=== PATIENT | female | born 1945 | race Caucasian/White ===

== ENCOUNTER 2024-09-01 06:23 | Day surgery (SDC) | payer MEDICARE, OTHER, SELFPAY ==
[2024-09-01 10:47] LABS: Glucose - Point of Care 96 mg/dl (70-99)
== END 2024-09-01 12:00 ==
LOC: GI 06:23
PROVIDERS: ATTENDING PHYSICIAN Internal Medicine Gastroenterology; FAMILY PHYSICIAN Nurse Practitioner Gerontology
DX: Z12.11 Encounter for screening for malignant neoplasm of colon (principal); K64.8 Other hemorrhoids; K57.30 Diverticulosis of large intestine without perforation or abscess without bleeding; Z86.0100 Personal history of colon polyps, unspecified
CPT/HCPCS: G0105; 82962

== ENCOUNTER → 2024-10-29 14:19 | Outpatient (REF) | payer MEDICARE, OTHER, SELFPAY | LOC: MRI 14:19 | PROVIDERS: ATTENDING PHYSICIAN Internal Medicine Gastroenterology; PRIMARYCARE PHYSICIAN Nurse Practitioner Gerontology | DX: R79.89 Other specified abnormal findings of blood chemistry (principal) | CPT/HCPCS: 74183; 76391; A9575 ==